=== PATIENT | male | born 1995 | race African-American/Black ===

== ENCOUNTER 2018-08-19 09:09 | Outpatient (CLI) | payer BC ==
--- NOTE | 2018-08-19 10:49 | RAD ---
LEFT HAND 3 VIEWS: Date: 08/19/18 HISTORY: Pain after injury. COMPARISON: None. FINDINGS: No acute fracture or malalignment. Soft tissues are unremarkable. IMPRESSION: No acute fracture or malalignment. POS: [facility]
== END 2018-08-19 09:10 | disposition home or self-care (01) ==
LOC: SCSRAD 09:09
PROVIDERS: ATTEND Family Medicine
DX: M79.642 Pain in left hand (principal)

== ENCOUNTER 2019-02-11 05:15 | Emergency (ER) | payer BC ==
[2019-02-11] MEDS ORDERED: Ketorolac Tromethamine 30 MG/ML VIAL ONE (05:57)
== END 2019-02-11 06:20 | disposition home or self-care (01) ==
LOC: ERS 05:15
DX: H66.91 Otitis media, unspecified, right ear (principal)
CPT/HCPCS: 96372; J1885

== ENCOUNTER 2022-03-15 19:20 | Emergency (ER) | payer BC, SELFPAY ==
[2022-03-15] MEDS ORDERED: Ondansetron PF 4 MG/2 ML Vial ONE (19:55)
[2022-03-15] MEDS ORDERED: Ketorolac Tromethamine 30 MG/ML VIAL ONE (20:59)
== END 2022-03-15 21:28 | disposition home or self-care (01) ==
LOC: ERS 19:20
DX: S06.0X0A Concussion without loss of consciousness, initial encounter (principal); W10.8XXA Fall (on) (from) other stairs and steps, initial encounter
CPT/HCPCS: 70450; 72125; 96374; 96375; J1885; J2405